=== PATIENT | female | born 1965 | race Caucasian/White ===

== ENCOUNTER 2017-12-19 12:37 | Inpatient (IN) | payer SELFPAY ==
[~2017-12-19] VITALS: Ht 157.5 cm; Wt 46.7 kg
[2017-12-19] MEDS ORDERED: SODIUM CHLORIDE 0.9% 1,000 ML IV ONE ×2 (18:28→21:30)
[2017-12-19 19:02] LABS: BASOPHILS % 0.2 % (0.0-2.0); EOSINOPHILS % 0.1 % (0.0-5.0); HEMATOCRIT. 45.5 % (36.0-48.0); HEMOGLOBIN. 15.7 g/dL (12.0-16.0); LYMPHOCYTES % 20.8 % (20.0-50.0); MEAN CORPUSCULAR HEMOGLOBIN 30.4 pg (28.0-32.0); MEAN CORPUSCULAR VOLUME 88.1 fL (81.0-99.0); MEAN PLATELET VOLUME 8.1 fl (7.4-10.4); MONOCYTES % 4.5 % (2.0-8.0); NEUTROPHILS % 74.4 % (40.0-76.0); PLATELET 266 x1000/uL (130-400); RED BLOOD CELL COUNT 5.16 mill/uL (4.2-5.4); RED CELL DISTRIBUTION WIDTH 12.9 % (11.6-14.6)
[2017-12-19 19:06] LABS: CHLORIDE 109 mEq/L (98-107)
[2017-12-19 19:10] LABS: AMMONIA 45 uMol/L (<32)
[2017-12-19 19:11] LABS: ETHANOL BLOOD < 10 mg/dL
[2017-12-19 19:52] LABS: CLARITY URINE CLEAR (CLEAR); COLOR URINE DARK YELLOW (YELLOW); KETONES URINE 2+ (NEGATIVE); LEUKOCYTE ESTERASE URINE 1+ (NEGATIVE); NITRITE URINE NEGATIVE (NEGATIVE); OCCULT BLOOD URINE NEGATIVE (NEGATIVE); PROTEIN URINE 1+ (NEGATIVE); SPECIFIC GRAVITY URINE 1.029 (1.005-1.030)
[2017-12-19 20:03] LABS: *AMPHETAMINES SCREEN URINE NEGATIVE (NEGATIVE); *BARBITURATES SCREEN URINE NEGATIVE (NEGATIVE); *BENZODIAZEPINES SCREEN URINE NEGATIVE (NEGATIVE); *COCAINE SCREEN URINE NEGATIVE (NEGATIVE); CANNABINOID URINE SCREEN NEGATIVE (NEGATIVE); METHADONE URINE SCREEN NEGATIVE (NEGATIVE); OPIATES URINE SCREEN NEGATIVE (NEGATIVE); PHENCYCLIDINE URINE SCREEN NEGATIVE (NEGATIVE)
[2017-12-19] MEDS ORDERED: CEFTRIAXONE 1 G PREMIX 50 ML IV ONE (21:30)
[2017-12-20] VITALS: BP 80/42
[2017-12-20 15:48] VITALS: BP 117/69
[2017-12-20 16:00] VITALS: BP 117/69
[2017-12-20] MEDS ORDERED: NITROGLYCERIN 0.4MG TABLET SL SL PRN (17:15)
[2017-12-20] MEDS ORDERED: IPRATROPIUM/ALBUTEROL 0.5-3(2.5)MG/3ML NEB INH PRN (17:15)
[2017-12-20] MEDS ORDERED: ACETAMINOPHEN 325MG TABLET PO PRN (17:15)
[2017-12-20] MEDS ORDERED: ONDANSETRON HCL 4MG/2ML VIAL IV PRN (17:15)
[2017-12-20] MEDS ORDERED: NA PHOS,M-B/NA PHOS,DI-BA ENEMA 118ML PR PRN (17:15)
[2017-12-20] MEDS ORDERED: CLONIDINE 0.1MG TABLET PO PRN (17:15)
[2017-12-20] MEDS ORDERED: GUAIFENESIN 200MG/10ML SUGAR FREE UDC PO PRN (17:15)
[2017-12-20] MEDS ORDERED: DOCUSATE SODIUM 100MG CAPSULE PO PRN (17:30)
[2017-12-20] MEDS ORDERED: KETOROLAC 15MG/ML VIAL IV PRN (17:30)
[2017-12-20] MEDS ORDERED: DIPHENHYDRAMINE 50MG/ML VIAL IV PRN (17:30)
[2017-12-20] MEDS ORDERED: MAGNESIUM/ALUMINUM HYDROXIDE/SIMETHICONE 30ML UDC PO PRN (17:30)
[2017-12-20] MEDS: ENOXAPARIN 40MG/0.4ML SYR SUBCUT SCH (18:00)
[2017-12-20 20:00] VITALS: BP 96/51
[2017-12-20 20:23] LABS: FOLIC ACID (FOLATE) SERUM 5.5 ng/mL (>5.38)
[2017-12-20] MEDS ORDERED: ZOLPIDEM TARTRATE 5MG TABLET PO PRN (21:00)
[2017-12-20] MEDS: LEVOFLOXACIN 500MG PREMIX 100 ML IV SCH (21:22)
[2017-12-21] VITALS (8 sets, daily range): BP systolic 80–108; BP diastolic 42–61
[2017-12-21 00:54] LABS: CREATINE KINASE MB FRACTION 3.1 ng/mL (0.5-3.6); TROPONIN I 0.02 ng/mL (0.00-0.04)
[2017-12-21 07:50] LABS: CREATINE KINASE 133 IU/L (26-192); CREATINE KINASE MB FRACTION 2.8 ng/mL (0.5-3.6); TROPONIN I < 0.02 ng/mL (0.00-0.04)
[2017-12-21] MEDS: PANTOPRAZOLE SODIUM 40 MG/VIAL IV SCH (09:24)
[2017-12-21] MEDS: ASPIRIN 325MG EC TABLET PO SCH (09:24)
[2017-12-21] MEDS: ENOXAPARIN 40MG/0.4ML SYR SUBCUT SCH (17:53)
[2017-12-21] MEDS: LEVOFLOXACIN 500MG PREMIX 100 ML IV SCH (21:32)
[2017-12-22] VITALS: BP 94/58
[2017-12-22 04:00] VITALS: BP 99/55
[2017-12-22 08:00] VITALS: BP 98/62
[2017-12-22] MEDS: ASPIRIN 325MG EC TABLET PO SCH (08:12)
[2017-12-22] MEDS: PANTOPRAZOLE SODIUM 40 MG/VIAL IV SCH (08:12)
[2017-12-22 12:00] VITALS: BP 84/54
[2017-12-22 16:00] VITALS: BP 90/55
[2017-12-22] MEDS: LEVOFLOXACIN 500MG TABLET PO SCH (17:00)
[2017-12-22] MEDS: ENOXAPARIN 40MG/0.4ML SYR SUBCUT SCH (18:00)
[2017-12-22 20:00] VITALS: BP 81/49
[2017-12-23] VITALS: BP 87/52
[2017-12-23 04:00] VITALS: BP_SYST 85; BP_SYST 95; BP_DIAS 57
[2017-12-23 08:00] VITALS: BP 101/66
[2017-12-23] MEDS: FAMOTIDINE 20MG TABLET PO SCH ×2 (09:16→21:00)
[2017-12-23] MEDS: ASPIRIN 325MG EC TABLET PO SCH (09:17)
[2017-12-23 12:00] VITALS: BP 112/64
[2017-12-23] MEDS: LEVOFLOXACIN 500MG TABLET PO SCH (13:45)
[2017-12-23 16:00] VITALS: BP 116/74
[2017-12-23] MEDS: ENOXAPARIN 40MG/0.4ML SYR SUBCUT SCH (18:00)
[2017-12-23 20:00] VITALS: BP 90/52
[2017-12-24] VITALS: BP 96/59
[2017-12-24 04:00] VITALS: BP 96/55
[2017-12-24 07:15] LABS: HEMATOCRIT 34.5 % (36.0-48.0); HEMOGLOBIN 11.8 g/dL (12.0-16.0); MEAN CORPUSCULAR HEMOGLOBIN 29.9 pg (28.0-32.0); MEAN CORPUSCULAR VOLUME 87.7 fL (81.0-99.0); PLATELET 206 x1000/uL (130-400); RED BLOOD CELL COUNT 3.93 mill/uL (4.2-5.4); RED CELL DISTRIBUTION WIDTH 12.6 % (11.6-14.6)
[2017-12-24] MEDS: FAMOTIDINE 20MG TABLET PO SCH (09:00)
[2017-12-24] MEDS: ASPIRIN 325MG EC TABLET PO SCH (09:00)
== END 2017-12-24 15:40 | disposition home or self-care (01) | DRG 463 ==
LOC: ER 12:45 → 5WST 12-20 12:19 → ENRESERV 12-20 14:04
PROVIDERS: ADMIT Internal Medicine; ATTEND Internal Medicine
DX: N39.0 Urinary tract infection, site not specified (principal); G93.40 Encephalopathy, unspecified; E87.0 Hyperosmolality and hypernatremia; E11.65 Type 2 diabetes mellitus with hyperglycemia; E86.0 Dehydration; Z59.0 Homelessness
CPT/HCPCS: 36415; 70450; 71045; 80053; 80305; 80307; 80329; 81003; 82140; 82550; 82553; 82607; 82746; 83036; 83540; 83550; 84443; 84484; 85025; 85027; 93005; 96361; 96365; 96375; 97116; 97162; 97530; 99285; C9113; G0482; J0696; J1650; J1956; J7030; J7050